=== PATIENT | male | born 1935 | race Caucasian/White ===

== ENCOUNTER 2018-04-07 05:11 | Observation (INO) ==
[2018-04-07] MEDS ORDERED: Morphine Inj 4 MG/ML Vial IV.PUSH ONE (05:28)
--- NOTE | 2018-04-07 05:39 | ED ---
HPI General Chief Complaint: Chest Pain Stated Complaint: Chest pain Time Seen by Provider: 04/07/18 05:29 Source: patient and family Mode of arrival: ambulatory Limitations: no limitations History of Present Illness HPI narrative: 82 yo M c/o chest pain, pleuritic in nature, starting about three days ago and worsening this morning. no fever or cough. no hx CAD, HTN, DM , HLD. epiastric/retrosternal in location. no radiation. severity moderate. [place] prior to onset of symptoms. no hx DVT/PE. Related Data Home Medications Medication Instructions Recorded Confirmed levothyroxine 75 mcg PO DAILY 04/07/18 04/07/18 Previous Rx's Medication Instructions Recorded apixaban [Eliquis] 5 mg PO BID 30 Days #60 tab 04/07/18 metoprolol tartrate 25 mg PO BID 30 Days #60 tab 04/07/18 Allergies Allergy/AdvReac Type Severity Reaction Status Date / Time No Known Allergies Allergy Verified 04/07/18 05:13 Review of Systems ROS: all other systems reviewed are negative [facility] Medical History Medical History Hypothyroid (Acute) Polio (Acute) Surgical History Surgical History History of hernia surgery (Acute) Social History Social History Substance History: No History of Abuse Second Hand Smoke Exposure: No Smoking Status: Never smoker How Often Do You Have a Drink Containing Alcohol: Monthly or less Recent Travel in [place] within the Last 8 Weeks: No Recent Out of Country Travel within the Last 8 Weeks: No Immunization History Tetanus Immunization: <5 Years Exam Narrative Exam Narrative: GENERAL: 82 yo F, WNWD, mild distress 2/2 pain SKIN: Focused skin assessment warm/dry. HEAD: Atraumatic. Normocephalic. EYES: Pupils equal and round. No scleral icterus. No injection or drainage. ENT: No nasal bleeding or discharge. Mucous membranes pink and moist. NECK: Trachea midline. No JVD. CARDIOVASCULAR: Irregular rhythm. Rate 110s-120. RESPIRATORY: Lungs are clear. RR 22. GASTROINTESTINAL: Abdomen soft, non-tender, nondistended. Hepatic and splenic margins not palpable. MUSCULOSKELETAL: No obvious deformities. No clubbing. No cyanosis. No edema. NEUROLOGICAL: Awake and alert. No obvious cranial nerve deficits. Motor grossly within normal limits. Normal speech. PSYCHIATRIC: Appropriate mood and affect; insight and judgment normal. Course Initial Documented Vital Signs Temperature 99.3 F 04/07/18 05:13 Pulse Rate 130 H 04/07/18 05:13 Respiratory Rate 22 04/07/18 05:13 Blood Pressure 153/88 H 04/07/18 05:13 Pulse Oximetry 96 04/07/18 05:13 Last Documented Vital Signs Temperature 99.3 F 04/07/18 05:13 Pulse Rate 64 04/07/18 11:47 Respiratory Rate 18 04/07/18 11:47 Blood Pressure 121/62 04/07/18 11:47 Pulse Oximetry 97 04/07/18 11:47 Sign Out Sign Out Data: Patient Sign Out occurred on 04/07/18 at 07:08. Patient's care was discussed, and care was transferred from Oli Corbett MD to Lexi Ayala MD. Sign Out Comment: PT arrives with CP, pleuritic after flying from [place], tachycardia Tn < 0.[address] changes in V2 concerning for ischemia without reciprocal change Pain [address] pulmonary angiogram pending Last updated by Oli Corbett MD at 04/07/18 06:53 Post-Handoff Eval: CTA negative for pulmonary embolism. First troponin negative. Laboratory work otherwise unremarkable. Patient does not have any history of atrial fibrillation, and had EKG showing atrial fibrillation with rapid ventricular response which is now controlled after single dose of diltiazem IV. Will admit patient to medicine for chest pain and new onset atrial fibrillation. Medical Decision Making MDM Narrative Medical decision making narrative: EKG irregular rhythm, rate 110, ST changes precordial leads are concerning for ischemia irregular qrs complexes raising concern for atrial fibrillation, diltiazem ordered however bp dropped to 80s systolic after nitro and morphine, and HR dropped to 90s shortly thereafter d/w oncoming provider at 7AM, follow up CT pulmonary angiogram with plan for admission pending results Medical Screen Exam Complete: Yes Emergency Medical Condition: Yes Lab Data Result diagrams: 04/07/18 05:38 02/14/19 05:38 Lab Results 04/07/18 04/07/18 04/07/18 Range/Units 05:38 05:38 05:38 WBC 8.9 (4.0-11.0) th/mm3 RBC 4.39 L (4.50-5.90) mil/mm3 Hgb 14.0 (13.0-17.0) gm/dL Hct 40.6 (39.0-51.0) % MCV 92.5 (80.0-100.0) fL MCH 31.8 (27.0-34.0) pg MCHC 34.4 (32.0-36.0) % RDW 14.8 (11.6-17.2) % Plt Count 164 (150-450) th/mm3 MPV 8.2 (7.0-11.0) fL Neut % (Auto) 84.4 H (16.0-70.0) % Lymph % (Auto) 6.1 L (9.0-44.0) % [place] % (Auto) 7.9 (0.0-8.0) % Eos % (Auto) 0.9 (0.0-4.0) % Baso % (Auto) 0.7 (0.0-2.0) % Neut # (Auto) 7.5 (1.8-7.7) th/mm3 Lymph # (Auto) 0.5 L (1.0-4.8) th/mm3 [place] # (Auto) 0.7 (0.0-0.9) th/mm3 Eos # (Auto) 0.1 (0.0-0.4) th/mm3 Baso # (Auto) 0.1 (0.0-0.2) th/mm3 WBC Differential . Differential Comment Auto diff final Sodium 142 (136-145) meq/L Potassium 4.1 (3.5-5.1) meq/L Chloride 106 (98-107) meq/L Carbon Dioxide 28.8 (21.0-32.0) meq/L Anion Gap 7 (5-15) meq/L BUN 19 H (7-18) mg/dL Creatinine 1.04 (0.60-1.30) mg/dL Estimated GFR 69 L (>89) mL/min Random Glucose 118 H (74-106) mg/dL Calcium 8.4 L (8.5-10.1) mg/dL Total Bilirubin 0.7 (0.2-1.0) mg/dL AST 25 (15-37) U/L ALT 32 (12-78) U/L Alkaline Phosphatase 92 (45-117) U/L Troponin I Less than 0.02 L (0.02-0.05) ng/mL B-Natriuretic Peptide (0-100) pg/mL Total Protein 7.8 (6.4-8.2) g/dL Albumin 3.5 (3.4-5.0) g/dL TSH 4.580 H (0.358-3.740) uIU/mL 04/07/18 Range/Units 06:00 WBC (4.0-11.0) th/mm3 RBC (4.50-5.90) mil/mm3 Hgb (13.0-17.0) gm/dL Hct (39.0-51.0) % MCV (80.0-100.0) fL MCH (27.0-34.0) pg MCHC (32.0-36.0) % RDW (11.6-17.2) % Plt Count (150-450) th/mm3 MPV (7.0-11.0) fL Neut % (Auto) (16.0-70.0) % Lymph % (Auto) (9.0-44.0) % [place] % (Auto) (0.0-8.0) % Eos % (Auto) (0.0-4.0) % Baso % (Auto) (0.0-2.0) % Neut # (Auto) (1.8-7.7) th/mm3 Lymph # (Auto) (1.0-4.8) th/mm3 [place] # (Auto) (0.0-0.9) th/mm3 Eos # (Auto) (0.0-0.4) th/mm3 Baso # (Auto) (0.0-0.2) th/mm3 WBC Differential Differential Comment Sodium (136-145) meq/L Potassium (3.5-5.1) meq/L Chloride (98-107) meq/L Carbon Dioxide (21.0-32.0) meq/L Anion Gap (5-15) meq/L BUN (7-18) mg/dL Creatinine (0.60-1.30) mg/dL Estimated GFR (>89) mL/min Random Glucose (74-106) mg/dL Calcium (8.5-10.1) mg/dL Total Bilirubin (0.2-1.0) mg/dL AST (15-37) U/L ALT (12-78) U/L Alkaline Phosphatase (45-117) U/L Troponin I (0.02-0.05) ng/mL B-Natriuretic Peptide 61 (0-100) pg/mL Total Protein (6.4-8.2) g/dL Albumin (3.4-5.0) g/dL TSH (0.358-3.740) uIU/mL Imaging Data Radiologist's impression: Chest X-Ray 04/07/18 05:28 CONCLUSION: Mild cardiac decompensation Chest CTA 04/07/18 05:33 CONCLUSION: 1. This study is negative for pulmonary embolism. Discharge Plan Discharge Disposition Patient Disposition: ED Admit(ED Internal Use Only) Discharge Condition Condition: Stable Discharge Order Discharge Orders: Discharge Order (Routine); Ordered 04/07/18 Ordered By: Chris Groves ED Use Only Admit Order (Routine); Ordered 04/07/18 Ordered By: Lexi Ayala Discharge Details Diagnosis: Chest pain, Atrial fibrillation with rapid ventricular response Physicians Team ED Provider: Lexi Ayala Attending Provider: Chris Groves Other Providers: [place] Status ED Status: Left Department Discharge Information Discharge Date/Time: 04/07/18 13:26
[2018-04-07] MEDS ORDERED: Sod Chloride 0.9% Inj 1,000 ML IV.SIG SCH (05:45)
[2018-04-07 05:50] LABS: Baso # (Auto) 0.1 th/mm3 (0.0-0.2); Baso % (Auto) 0.7 % (0.0-2.0); Eos # (Auto) 0.1 th/mm3 (0.0-0.4); Eos % (Auto) 0.9 % (0.0-4.0); Hematocrit 40.6 % (39.0-51.0); Lymph # (Auto) 0.5 th/mm3 (1.0-4.8); Lymph % (Auto) 6.1 % (9.0-44.0); Mean Corpuscular HGB Conc 34.4 % (32.0-36.0); Mean Corpuscular Hemoglobin 31.8 pg (27.0-34.0); Mean Corpuscular Volume 92.5 fL (80.0-100.0); Mean Platelet Volume 8.2 fL (7.0-11.0); Mono # (Auto) 0.7 th/mm3 (0.0-0.9); Mono % (Auto) 7.9 % (0.0-8.0); Neut # (Auto) 7.5 th/mm3 (1.8-7.7); Neut % (Auto) 84.4 % (16.0-70.0); Platelet Count 164 th/mm3 (150-450); Red Blood Count 4.39 mil/mm3 (4.50-5.90); Red Cell Distribution Width 14.8 % (11.6-17.2); White Blood Count 8.9 th/mm3 (4.0-11.0)
--- NOTE | 2018-04-07 05:51 | XR ---
EXAM DATE: 04/07/2018 5:47 AM EST AGE/SEX: 82 years / Male INDICATIONS: Short of breath. CLINICAL DATA: This is the patient's initial encounter. Patient reports that signs and symptoms have been present for 1 day and indicates a pain score of 0/10. MEDICAL/SURGICAL HISTORY: None. None. COMPARISON: No prior exams available for comparison. FINDINGS: Cardiac enlargement with vascular congestion and interstitial prominence. Slight streaky basilar pare nchymal opacity. CONCLUSION: Mild cardiac decompensation Electronically signed by: Manoj Granados MD Board Certified Radiologist 04/07/2018 5:50 AM EST
[2018-04-07 06:07] LABS: Alanine Aminotransferase 32 U/L (12-78); Albumin 3.5 g/dL (3.4-5.0); Anion Gap 7 meq/L (5-15); Aspartate Aminotransferase 25 U/L (15-37); Blood Urea Nitrogen 19 mg/dL (7-18); Calcium 8.4 mg/dL (8.5-10.1); Carbon Dioxide 28.8 meq/L (21.0-32.0); Chloride 106 meq/L (98-107); Glomerular Filtration Rate 69 mL/min (>89); Glucose,Random 118 mg/dL (74-106); Potassium 4.1 meq/L (3.5-5.1); Sodium 142 meq/L (136-145)
[2018-04-07 06:11] LABS: Alkaline Phosphatase 92 U/L (45-117); Total Protein 7.8 g/dL (6.4-8.2)
--- NOTE | 2018-04-07 07:05 | CT ---
EXAM DATE: 04/07/2018 6:54 AM EST AGE/SEX: 82 years / Male INDICATIONS: Chest pain. CLINICAL DATA: This is the patient's initial encounter. Patient reports that signs and symptoms have been present for 2 days and indicates a pain score of 6/10. MEDICAL/SURGICAL HISTORY: None. None. RADIATION DOSE: 10.56 CTDI (mGy) COMPARISON: No prior exams available for comparison. TECHNIQUE: Volumetric scanning was performed using a multi-row detector CT scanner during bolus infu abby of 74 ml Omnipaque 350 (iohexol) nonionic water-soluble contrast as a single exam dose. The anjelica a was post processed with a variety of visualization algorithms including full volume maximum intensi ty projection and sliding thin slab reformation. Using automated exposure control and adjustment of t he mA and/or kV according to patient size, radiation dose was kept as low as reasonably achievable to obtain optimal diagnostic quality images. DICOM format image data is available electronically for r eview and comparison. FINDINGS: Pulmonary Arteries: No filling defects are seen in the pulmonary arteries out to the subsegmental ve ssels. The left and right pulmonary arteries are normal in diameter. Lung: No infiltrates seen. No mass. Effusion: None. Mediastinum: Mild cardiomegaly. No pericardial effusion. Small hiatal hernia. No mass or adenopathy observed.. Other: The axilla is unremarkable. CONCLUSION: 1. This study is negative for pulmonary embolism. Electronically signed by: Tariq Garcia MD Board Certified Radiologist 04/07/2018 7:03 AM EST
[2018-04-07] MEDS ORDERED: Sod Chloride 0.9% Inj 1,000 ML IV.CONT SCH (07:37)
[2018-04-07] MEDS ORDERED: Regadenoson Inj 0.4 MG/5 ML Syringe IV.PUSH ONE (08:49)
--- NOTE | 2018-04-07 08:56 | P.CONCA ---
History of Present Illness Primary Care Provider: Matheus Arauz History of Present Illness: 82-year-old male with hypothyroidism, GERD who presented for pleuritic chest discomfort. Reports about 3 days ago he had chest discomfort with taking a deep breath. He states a day in the chest discomfort recurred and was severe and came to the ED for evaluation. He had a recent plane trip from [place]. CTA done in the ED showed no PE. He denies any prior chest pain, shortness breath, palpitations. EKGs show atrial flutter with variable AV block, and for this we are consulted. Patient does report a history of anemia that was treated last year by wax cutter with B12 and iron, hemoglobin currently normal. Review of Systems All other systems reviewed negative except as stated in HPI PMFSH - History History Provided By: Patient - Medical History Medical History: Medical History (Last Updated 04/07/18 @ 05:23 by Rehana Lopez RN) Hypothyroid Polio - Surgical History Surgical History: Surgical History (Last Updated 04/07/18 @ 05:15 by Holley Kidd) History of hernia surgery - Tobacco History Second Hand Smoke Exposure: No Tobacco Use In Past 30 Days: No Smoking Status: Never smoker - Alcohol History How Often Do You Have a Drink Containing Alcohol: Monthly or less - Substance Use History Substance History: No History of Abuse - Travel History Recent Travel in the [place] Within the Last 8 Weeks: No Recent Travel Out of the Country Within the Last 8 Weeks: No - Immunization History Tetanus Immunization: <5 Years Medications and Allergies Active Medications: Active Medications Sodium Chloride (Ns Inj) 1,000 mls @ 70 mls/hr IV.CONT .[id number] [facility] Last Admin: 04/07/18 07:49 Dose: 70 mls/hr Metoprolol Tartrate (Lopressor) 25 mg PO BID [facility] Sodium Chloride (Ns Flush) 2 ml IV.FLUSH UNSCH PRN PRN Reason: FLUSH AFTER USING IV ACCESS Allergies Allergy/AdvReac Type Severity Reaction Status Date / Time No Known Allergies Allergy Verified 04/07/18 05:13 Home Medications Medication Instructions Recorded Confirmed Type levothyroxine 75 mcg PO DAILY 04/07/18 04/07/18 History Exam Vital signs: Vital Signs 04/07/18 05:13 04/07/18 05:28 04/07/18 05:43 Temperature 99.3 F Pulse Rate 130 H 118 H 110 H Respiratory Rate 22 18 16 Blood Pressure 153/88 H 140/81 89/61 L Pulse Oximetry 96 98 98 04/07/18 05:50 04/07/18 06:22 04/07/18 07:38 Temperature Pulse Rate 97 H 92 H 82 Respiratory Rate 18 18 20 Blood Pressure 120/69 120/69 124/81 Pulse Oximetry 98 95 98 Intake & Output 04/06/18 04/07/18 04/07/18 18:59 06:59 18:59 Intake Total 200 / 200 0 / 0 Balance 200 / 200 0 / 0 Weight 200 lb Intake: IV 200 / 200 0 / 0 NS Inj 1,000 ML @ 1000 mls/hr 200 / 200 0 / 0 IV.SIG BOLUS GABBI Rx#:[id number] Narrative: GENERAL: Well-developed well-nourished. In no acute distress. NECK: No carotid bruits. No JVD. CARDIOVASCULAR: Irregular rate and rhythm. No murmur appreciated. RESPIRATORY: No accessory muscle use. Clear to auscultation. Breath sounds equal bilaterally. MUSCULOSKELETAL: No clubbing or cyanosis. No edema. NEUROLOGICAL: Awake and alert. Normal speech. Results 04/07/18 05:38 04/07/18 05:38 Cardiac Enzymes 04/07/18 04/07/18 Range/Units 05:38 06:00 AST 25 (15-37) U/L Troponin I Less than 0.02 L (0.02-0.05) ng/mL B-Natriuretic Peptide 61 (0-100) pg/mL Coagulation 04/07/18 Range/Units 06:00 B-Natriuretic Peptide 61 (0-100) pg/mL CBC 04/07/18 Range/Units 05:38 WBC 8.9 (4.0-11.0) th/mm3 RBC 4.39 L (4.50-5.90) mil/mm3 Hgb 14.0 (13.0-17.0) gm/dL Hct 40.6 (39.0-51.0) % Plt Count 164 (150-450) th/mm3 Neut # (Auto) 7.5 (1.8-7.7) th/mm3 Lymph # (Auto) 0.5 L (1.0-4.8) th/mm3 [place] # (Auto) 0.7 (0.0-0.9) th/mm3 Eos # (Auto) 0.1 (0.0-0.4) th/mm3 Baso # (Auto) 0.1 (0.0-0.2) th/mm3 Comprehensive Metabolic Panel 04/07/18 Range/Units 05:38 Sodium 142 (136-145) meq/L Potassium 4.1 (3.5-5.1) meq/L Chloride 106 (98-107) meq/L Carbon Dioxide 28.8 (21.0-32.0) meq/L BUN 19 H (7-18) mg/dL Creatinine 1.04 (0.60-1.30) mg/dL Calcium 8.4 L (8.5-10.1) mg/dL AST 25 (15-37) U/L ALT 32 (12-78) U/L Alkaline Phosphatase 92 (45-117) U/L Total Protein 7.8 (6.4-8.2) g/dL Albumin 3.5 (3.4-5.0) g/dL Intake and Output 04/06/18 04/07/18 04/07/18 22:59 06:59 14:59 Intake Total 200 / 200 0 / 0 Balance 200 / 200 0 / 0 Intake: IV 200 / 200 0 / 0 NS Inj 1,000 ML @ 1000 mls/hr 200 / 200 0 / 0 IV.SIG BOLUS GABBI Rx#:[id number] Other: Weight 200 lb - Imaging and Cardiology Imaging: Impressions Chest X-Ray 04/07/18 05:28 CONCLUSION: Mild cardiac decompensation Chest CTA 04/07/18 05:33 CONCLUSION: 1. This study is negative for pulmonary embolism. Assessment and Plan - Plan 82-year-old male with hypothyroidism who presented for pleuritic chest discomfort Atypical chest pain: Symptoms sound pleuritic and not cardiac. EKG and troponin with no concerning ischemic changes. Atrial flutter: Start metoprolol 25 mg twice daily for rate control. Chads vasc 2 for age, discussed risk/benefits/alternatives of anticoagulation for stroke prevention, start Eliquis 5 mg twice. Okay for DC from cardiology perspective for outpatient follow-up Discussed Condition With: Patient with family at bedside, Dr. Hinson
[2018-04-07] MEDS ORDERED: Metoprolol Tartrate 25 MG Tablet PO SCH (09:00)
--- NOTE | 2018-04-07 12:18 | ECG ---
Date Performed: 04/07/2018 Time Performed: 07:34:32 PTAGE: 82 years EKG: ATRIAL FLUTTER/TACHYCARDIA BORDERLINE LEFT AXIS DEVIATION MODERATE INTRAVENTRICULAR CONDUCT ION DELAY MODERATE VOLTAGE CRITERIA FOR LVH, CONSIDER NORMAL VARIANT ABNORMAL RHYTHM ECG Since the PREVIOUS TRACING , no significant change noted PREVIOUS TRACIN04/07/2018 05.22 DOCTOR: Kevin Nixon Interpretating Date/Time 04/07/2018 12:16:40
--- NOTE | 2018-04-07 12:18 | ECG ---
Date Performed: 04/07/2018 Time Performed: 05:22:30 PTAGE: 82 years EKG: ATRIAL FIBRILLATION/ FLUTTER WITH RAPID VENTRICULAR RESPONSE LVH BY VOLTAGE ABNORMAL RHYTHM ECG NO PREVIOUS TRACING DOCTOR: Kevin Nixon Interpretating Date/Time 04/07/2018 12:16:24
--- NOTE | 2018-04-07 12:34 | P.HPIM ---
History of Present Illness Primary Care Physician: Matheus Arauz Chief Complaint: chest pain History of Present Illness: patient is a 82 y/o male with history of hypothyroidism who presented to ER with chest pain. he says that the pain started two-three days ago. pain is sharp and worse with deep inspiration.he denies any sob,nausea,vomiting, cough, fever or chills. he denies any dizziness. Review of Systems Review of Systems: all other systems reviewed are negative PMFSH Medical History Medical History Hypothyroid (Acute) Polio (Acute) Surgical History Surgical History History of hernia surgery (Acute) Social History Social History Substance History: No History of Abuse Second Hand Smoke Exposure: No Smoking Status: Never smoker How Often Do You Have a Drink Containing Alcohol: Monthly or less Recent Travel in [facility] within the Last 8 Weeks: No Recent Out of Country Travel within the Last 8 Weeks: No Immunization History Tetanus Immunization: <5 Years Medications and Allergies Allergies Allergy/AdvReac Type Severity Reaction Status Date / Time No Known Allergies Allergy Verified 04/07/18 05:13 Home Medications Medication Instructions Recorded Confirmed Type levothyroxine 75 mcg PO DAILY 04/07/18 04/07/18 History Active Medications: Active Medications Albuterol (Albuterol Neb (Prn)) 2.5 mg NEB UNSCH PRN PRN Reason: SHORTNESS OF BREATH/WHEEZING Albuterol (Duoneb Neb (Prn)) 1 ampul NEB UNSCH PRN PRN Reason: SHORTNESS OF BREATH/WHEEZING Apixaban (Eliquis) 5 mg PO BID [facility] Last Admin: 04/07/18 09:32 Dose: 5 mg Sodium Chloride (Ns Inj) 1,000 mls @ 70 mls/hr IV.CONT .[id number] [facility] Last Admin: 04/07/18 07:49 Dose: 70 mls/hr Metoprolol Tartrate (Lopressor) 25 mg PO BID [facility] Last Admin: 04/07/18 09:32 Dose: 25 mg Sodium Chloride (Ns Flush) 2 ml IV.FLUSH UNSCH PRN PRN Reason: FLUSH AFTER USING IV ACCESS Physical Exam Vital signs: Vital Signs 04/07/18 05:13 04/07/18 05:28 04/07/18 05:43 Temperature 99.3 F Pulse Rate 130 H 118 H 110 H Respiratory Rate 22 18 16 Blood Pressure 153/88 H 140/81 89/61 L Pulse Oximetry 96 98 98 04/07/18 05:50 04/07/18 06:22 04/07/18 07:38 Temperature Pulse Rate 97 H 92 H 82 Respiratory Rate 18 18 20 Blood Pressure 120/69 120/69 124/81 Pulse Oximetry 98 95 98 04/07/18 09:36 04/07/18 11:06 04/07/18 11:47 Temperature Pulse Rate 94 H 63 64 Respiratory Rate 18 16 18 Blood Pressure 122/80 101/60 121/62 Pulse Oximetry 97 97 97 Intake & Output 04/06/18 04/07/18 04/07/18 18:59 06:59 18:59 Intake Total 200 / 200 0 / 0 Balance 200 / 200 0 / 0 Weight 90.718 kg Intake: IV 200 / 200 0 / 0 NS Inj 1,000 ML @ 1000 mls/hr 200 / 200 0 / 0 IV.SIG BOLUS GABBI Rx#:[id number] Constitutional no acute distress Routine HEENT Exam Eye: Present PERRL Routine Neck Exam Present supple Routine Respiratory Exam Present CTA bilaterally Routine Cardiovascular Exam Present irregular rhythm Routine Abdominal Exam Present soft Routine Extremities Exam Comments: no pedal edema. Routine Neurological Exam Present alert and oriented X3 Results Labs CBC & Chem 7: 04/07/18 05:38 04/07/18 05:38 Imaging Impressions Chest X-Ray 04/07/18 05:28 CONCLUSION: Mild cardiac decompensation Chest CTA 04/07/18 05:33 CONCLUSION: 1. This study is negative for pulmonary embolism. Caprini VTE Risk Assessment Caprini VTE Risk Assessment: Moderate/High Risk (score >= 2) Caprini Risk Assessment Model: Point Value = 1 Point Value = 2 Point Value = 3 Point Value = 5 Age 41-60 Minor surgery BMI > 25 kg/m2 Swollen legs Varicose veins or History of unexplained or recurrent spontaneous Oral contraceptives or hormone replacement Sepsis (< 1 month) Serious lung disease, including pneumonia (< 1 month) Abnormal pulmonary function Acute myocardial infarction Congestive heart failure (< 1 month) History of inflammatory bowel disease Medical patient at bed rest Age 61-74 Arthroscopic surgery Major open surgery (> 45 min) Laparoscopic surgery (> 45 min) Malignancy Confined to bed (> 72 hours) Immobilizing plaster cast Central venous access Age >= 75 History of VTE Family history of VTE Factor V Leiden Prothrombin [id number] Lupus anticoagulant Anticardiolipin antibodies Elevated serum homocysteine Heparin-induced thrombocytopenia Other congenital or acquired thrombophilia Stroke (< 1 month) Elective arthroplasty Hip, pelvis, or leg fracture Acute spinal cord injury (< 1 month) Prophylaxis Regimen: Total Risk Factor Score Risk Level Prophylaxis Regimen 0-1 Low Early ambulation 2 Moderate Order ONE of the following: *Sequential Compression Device (SCD) *Heparin 5000 units SQ BID 3-4 Higher Order ONE of the following medications: *Heparin 5000 units SQ TID *Enoxaparin/Lovenox 40 mg SQ daily (WT < 150 kg, CrCl > 30 mL/min) *Enoxaparin/Lovenox 30 mg SQ daily (WT < 150 kg, CrCl > 10-29 mL/min) *Enoxaparin/Lovenox 30 mg SQ BID (WT < 150 kg, CrCl > 30 mL/min) AND/OR *Sequential Compression Device (SCD) 5 or more Highest Order ONE of the following medications: *Heparin 5000 units SQ TID (Preferred with Epidurals) *Enoxaparin/Lovenox 40 mg SQ daily (WT < 150 kg, CrCl > 30 mL/min) *Enoxaparin/Lovenox 30 mg SQ daily (WT < 150 kg, CrCl > 10-29 mL/min) *Enoxaparin/Lovenox 30 mg SQ BID (WT < 150 kg, CrCl > 30 mL/min) AND *Sequential Compression Device (SCD) Assessment and Plan Plan A/P - A-fib with RVR cardiology consult appreciated- started on metoprolol and Eliquis. HR controlled and the patient was cleared for discharge with outpatient follow -up. -Hypothyroidism TSH elevated; will need a f/u with his PCP for possible further adjustment of his Levothyroxine dosage. Discussed Condition With: the patient and RN. Discharge Planning: home today. see med list. f/u; pcp and cardiology. d/w the patient and RN.
== END 2018-04-07 13:30 | disposition home or self-care (01) ==
LOC: NEDA 05:11 → NEPE 05:11 → NEDA 13:26
PROVIDERS: ADMIT Internal Medicine; ATTEND Internal Medicine
DX: Z79.890 Hormone replacement therapy; K21.9 Gastro-esophageal reflux disease without esophagitis; I48.92 Unspecified atrial flutter; R07.89 Other chest pain; I48.91 Unspecified atrial fibrillation; Z79.01 Long term (current) use of anticoagulants; E03.9 Hypothyroidism, unspecified; I44.30 Unspecified atrioventricular block; R06.02 Shortness of breath
CPT/HCPCS: 71010; 71045; 71275; 80053; 83520; 83880; 84443; 84484; 85025; 90774; 90784; 93005; 96374; 99285; C8952; G0378; J2270; J7030; Q9967